=== PATIENT | male | born 1990 | race Caucasian/White ===

== ENCOUNTER 2017-09-28 14:41 | Inpatient (IN) | payer BC, OTHER ==
[~2017-09-28] VITALS: Ht 175.3 cm; Wt 70.3 kg
--- NOTE | 2017-09-28 00:23 | NUR ---
KEM BOWER ADMINISTRATION PATIENT C/O LEFT KNEE PAIN 03/06. WILL MONITOR FOR EFFECTIVENESS Addendum: 09/29/17 at 0433 by JOSH SALDIVAR LVN ERROR CHARTING
--- NOTE | 2017-09-28 14:55 | NUR ---
PRE-ASSESSMENT: Pre-Assessment done at intake office, client is A/O x4, he presents with flat affect, anxious mood. Goose bumps and dilated pupils noted. T 98.2, RR 18, BP 117/75, HR 101, spO2 @ 99% on RA, Pain generalized body aches 12/04. He is ambulatory, but noted to be limping, he stated, "I might have a torn meniscus, I had a fall on 09/25." He denies any allergies; he denies any withdrawal-induced seizure. He declines any PMH. He denies a PCP. No home medications.
[2017-09-28] MEDS ORDERED: METHOCARBAMOL 750 MG TABLET PO PRN (15:00)
[2017-09-28] MEDS ORDERED: IBUPROFEN 600 MG TABLET PO PRN (15:00)
[2017-09-28] MEDS ORDERED: MIRALAX 17 GM POWD.PACK PO PRN (15:00)
[2017-09-28] MEDS ORDERED: ONDANSETRON 4 MG/2 ML VIAL IM PRN (15:00)
[2017-09-28] MEDS ORDERED: BUPRENORPHINE HCL 2 MG TAB.SUBL SL PRN (15:00)
[2017-09-28] MEDS ORDERED: LORAZEPAM 2 MG/1 ML VIAL IM PRN (15:00)
[2017-09-28] MEDS ORDERED: MAGNESIUM HYDROXIDE 30 ML LIQUID UDC PO PRN (15:00)
[2017-09-28] MEDS ORDERED: ONDANSETRON ODT 4 MG TAB.RAPDIS SL PRN (15:00)
[2017-09-28] MEDS ORDERED: DICYCLOMINE HCL 20 MG TABLET PO PRN (15:00)
[2017-09-28] MEDS ORDERED: LORAZEPAM 1 MG TABLET PO PRN ×2 (15:00)
[2017-09-28] MEDS ORDERED: MAG HYDROX/AL HYDROX/SIMETH 30 ML LIQUID UDC PO PRN (15:00)
[2017-09-28] MEDS ORDERED: DOCUSATE SODIUM 250 MG CAPSULE PO PRN (15:00)
[2017-09-28] MEDS ORDERED: ACETAMINOPHEN 325 MG TABLET PO PRN (15:00)
[2017-09-28] MEDS ORDERED: diphenhydrAMINE 50 MG CAPSULE PO PRN (15:00)
[2017-09-28] MEDS ORDERED: LOPERAMIDE HCL 2 MG CAPSULE PO PRN ×2 (15:00)
[2017-09-28] MEDS ORDERED: CLONIDINE HCL 0.1 MG TABLET PO PRN (15:00)
--- NOTE | 2017-09-28 15:08 | NUR ---
Admissions Note 27 year old male admitted to [facility] for withdrawal from alcohol & heroin. Client is oriented to unit, educated about protocols and how to work TV and call light in his room. Weight: 155 pounds. Height: 5'9" CIWA Client appears anxious, goose bumps, dilated pupils, and clammy skin, skin intact with well healed small track ruano on bilateral forearms. Bilateral lung clear on auscultation, abdomen soft, non-tender, no edema noted. Clients voice is soft, he avoids eye contact. Substance history Alcohol (Vodka) 750mL PO daily for two weeks, last used 09/28/17 Heroin 0.5-1gm IV daily for the past two weeks, last used 09/28/17. Methamphetamine unknown amount smoked a few times a week. Marijuana 1 gm daily smoked, last used 09/28/17 a few joints. Client reports been at least on 10 prior treatment, last being at [facility] in Aug 2017 for two weeks. Longest period of sobriety 11 months on 2013. Client has NKA. Regular diet ordered. Full code status ordered. Client denies any history of seizures. LBM was 09/27/17, small/brown/soft. Client denies a PCP. He refuses PNA / FLU vaccine at this time, stating he is afraid he might get sick because of it. He gives verbal consent for HIV. Client states that he lives with his dad. Dr. Frye is with client. Urine was collected upon admission. Client refused side rails x 2 up/padded, explain the risk/benefits of not having side rails up and he stated, "Just give me a paper to sign that I don't want them and I'll sign it." Fall/seizure precautions. Call light within reach. Will continue to monitor.
[2017-09-28 16:00] VITALS: BP 117/75
[2017-09-28] MEDS ORDERED: THIAMINE HCL 200 MG/2 ML VIAL IM ONE (16:00)
[2017-09-28] MEDS: LORAZEPAM 1 MG TABLET PO SCH ×2 (16:21→20:51)
[2017-09-28] MEDS: BUPRENORPHINE HCL 2 MG TAB.SUBL SL SCH ×2 (16:21→21:33)
[2017-09-28 16:49] LABS: *AMPHETAMINE, URINE POSITIVE (NEGATIVE); *BARBITURATE, URINE POSITIVE (NEGATIVE); *CANNABINOID, URINE POSITIVE (NEGATIVE); *COCCAINE, URINE NEGATIVE (NEGATIVE); *OPIATE, URINE POSITIVE (NEGATIVE); *PHENCYCLIDINE SCREEN,URINE NEGATIVE (NEGATIVE)
--- NOTE | 2017-09-28 19:08 | NUR ---
END OF SHIFT Endorsed to incoming nurse, client is a 27 year old male admitted to [facility] for withdrawal from alcohol & heroin.Client is a/o x 4. Last CIWA . Client continues to present with anxious mood, flat affect, goose bumps, dilated pupils, and clammy skin. Client has NKA. Regular diet ordered. Full code status ordered. Client denies any history of seizures. LBM was 09/27/17, small/brown/soft. Bed in lowest/locked position, client refuses side rails x 2 up/padded for seizure precautions.
[2017-09-28 20:00] VITALS: BP 136/77
--- NOTE | 2017-09-28 20:00 | NUR ---
START OF SHIFT NOTE RECEIVED REPORT FROM DAY SHIFT NURSE. PATIENT IS A 27 YEAR OLD MALE NEWLY ADMITTED FOR ALCOHOL/OPIOID DEPENDENCE. PATIENT RELAPSED 2 WEEKS AGO. LAST COWS 11 AND CIWA 5. PATIENT WAS PLACED ON 5 DAY ATIVAN AND 5 DAY SUBUTEX TAPER, STARTED TODAY. PATIENT REPORTS DENIES ANY PAST MEDICAL HISTORY. NO SEIZURE HISTORY. PATIENT HAD FALL ON 09/25. X-RAY DONE , PENDING RESULT. THIAMINE INJECTION GIVEN. RECEIVED PATIENT ALERT AND ORIENTED X 4. RESPIRATION EVEN AND UNLABORED. PATIENT STATES HE FEELS MUCH BETTER THAN EARLIER BUT HE STILL ANXIOUS, ABDOMINAL CRAMPING, SWEATING , NO N/V, NO N/V. ON FALL PRECAUTION. ONE SIDE RAILS UP , REFUSED BOTH SIDE RAILS UP. EXPLAINED RISKS/BENEFITS. WILL CONTINUE TO MONITOR.
[2017-09-29] VITALS: BP 140/82
--- NOTE | 2017-09-29 00:23 | NUR ---
PRN ROBAXIN ADMINISTRATION PATIENT C/O LEFT KNEE PAIN 03/06. WILL MONITOR FOR EFFECTIVENESS
--- NOTE | 2017-09-29 01:23 | NUR ---
KEM BOWER RE-ASSESSMENT PATIENT STATES ROBAXIN IS HELPFUL FOR HIS LEFT KNEE PAIN . PAIN LEVEL 2/10 AT THIS TIME. WILL CONTINUE TO MONITOR.
[2017-09-29 04:00] VITALS: BP 106/56
--- NOTE | 2017-09-29 07:15 | NUR ---
END OF SHIFT NOTE PATIENT SLEPT 1 HOUR. FLUID INTAKE 1,349 ML. VOIDED X 2 .NO BM. PATIENT IS A 27 YEAR OLD MALE NEWLY ADMITTED FOR ALCOHOL/OPIOID DEPENDENCE. PATIENT RELAPSED 2 WEEKS AGO. PATIENT IS ON 5 DAY ATIVAN AND 5 DAY SUBUTEX TAPER, TOLERATED WELL AND NO ADVERSE REACTION. PATIENT HAD FALL ON 09/25. X-RAY DONE, RESULT WAS NEGATIVE OF FRACTURE. PATIENT WAS GIVEN PRN ROBAXIN. ON FALL PRECAUTION. ONE SIDE RAILS UP , REFUSED BOTH SIDE RAILS UP. EXPLAINED RISKS/BENEFITS. WILL CONTINUE TO MONITOR. LAST COWS 2 AND CIWA 1.
--- NOTE | 2017-09-29 07:54 | NUR ---
BEGINNING OF SHIFT Patient endorsement report received from operation shift supervisor nurse, all pertinent information discussed. patient is a 27 year old male with admitting Dx: opiate/etoh dependence, and substance use of methamphetamine. Patient with ongoing 5 day Ativan and 5 day Subutex taper as ordered, patient is scheduled to begin day 2 of taper, will monitor closely. Per operation shift supervisor patient received PRN:Robaxin, medication was effective. patient slept for 1 hour. Patient with last cow score of: 2 and last ciwa score of: 1. Call light kept with in reach. Patient received in bed awake, alert and oriented x4, educated regarding plan of care for the day and medication regimen with good verbal understanding, will continue to monitor.
[2017-09-29 08:20] VITALS: BP 95/67
[2017-09-29] MEDS: THIAMINE HCL 100 MG TABLET PO SCH (08:23)
[2017-09-29] MEDS: MULTIVITAMINS,THERAPEUTIC TABLET PO SCH (08:23)
[2017-09-29] MEDS: FOLIC ACID 1 MG TABLET PO SCH (08:23)
[2017-09-29] MEDS: LORAZEPAM 1 MG TABLET PO SCH ×3 (08:24→21:38)
[2017-09-29] MEDS: BUPRENORPHINE HCL 2 MG TAB.SUBL SL SCH ×3 (08:24→21:37)
[2017-09-29] MEDS ORDERED: TUBERCULIN,PURIF.PROT.DERIV. 5 TU/0.1 ML TEST ID ONE (09:00)
--- NOTE | 2017-09-29 09:55 | NUR ---
REFUSED PPD Patient refused PPD, explained risk vs benefits, still refused, MD aware, patient with no cough/congestion noted, afebrile. will continue to monitor.
[2017-09-29] MEDS ORDERED: KETOROLAC TROMETHAMINE 30 MG INJ IM PRN (11:15)
[2017-09-29 12:18] LABS: BASOPHILS # (AUTO) 0.1 K/uL (0.0-8.0); BASOPHILS % (AUTO) 0.8 % (0.0-2.0); EOSINOPHILS # (AUTO) 0.7 K/uL (0.0-0.7); HEMOGLOBIN 14.1 g/dL (12.5-16.3); LYMPHOCYTES # (AUTO) 2.4 K/uL (20.0-40.0); LYMPHOCYTES % (AUTO) 32.4 % (20.5-51.5); MEAN CORPUSCULAR HEMOGLOBIN 30.1 uug (23.8-33.4); MEAN CORPUSCULAR HGB CONC 34 g/dL (32.5-36.3); MEAN CORPUSCULAR VOLUME 87.7 fL (73.0-96.2); MONOCYTES # (AUTO) 0.7 K/uL (2.0-10.0); NEUTROPHILS # (AUTO) 3.5 K/uL (1.8-8.9); NEUTROPHILS % (AUTO) 47.8 % (38.5-71.5); PLATELET COUNT (AUTO) 275 K/uL (152-348); RED BLOOD CELL COUNT(AUTO) 4.68 MIL/uL (4.06-5.63); WHITE BLOOD COUNT (AUTO) 7.4 K/uL (3.6-10.2)
[2017-09-29 12:56] LABS: ALANINE AMINOTRANSFERASE 67 U/L (16-63); ALKALINE PHOSPHATASE 97 U/L (50-136); ASPARTATE AMINOTRANSFERASE 35 U/L (15-37); BILIRUBIN,TOTAL 0.2 mg/dL (0.2-1.0); CARBON DIOXIDE 27 mmol/L (21-32); CHLORIDE 106 mmol/L (98-107); ETHANOL < 3 MG/DL (0-0); GLUCOSE 105 mg/dL (74-106); POTASSIUM 4.1 mmol/L (3.5-5.1); UREA NITROGEN, BLOOD 11 mg/dL (7-18)
[2017-09-29 12:57] LABS: MAGNESIUM 1.9 mg/dL (1.8-2.4); TOTAL PROTEIN, SERUM 7.3 g/dL (6.4-8.2)
[2017-09-29 13:20] VITALS: BP 113/63
[2017-09-29 16:46] VITALS: BP 121/78
--- NOTE | 2017-09-29 19:11 | NUR ---
END OF SHIFT Patient alert and oriented x4, during shift. compliant with therapeutic plan of care. Patient continues on 5 day ativan and 5 day subutex taper as ordered, well tolerated, patient currently with ongoing day 2 of tapers, well tolerated, no ASE noted. Patient with admitting dx: etoh/opiate dependence. Detox medication effective at reducing withdrawal symptoms. 0900 COW: 13/CIWA: 8. 1300 COW: 14 CIWA: 8; 1700 COW: 6CIWA:4.Patient encouraged adequate PO fluid intake as tolerated. Encouraged to attend group therapies/sessions to learn new coping skills to prevent relapse. Patient Denies any SI/HI. Safety measures in place. call light kept with in reach. patient endorsed to benefits sales consultant nurse, all pertinent information discussed.
--- NOTE | 2017-09-29 19:15 | NUR ---
START OF SHIFT NOTE : PATIENT IS A 27 YEAR OLD MALE , ADMITTED TO [facility] FOR ALCOHOL/OPIOID DEPENDENCE ON 09/28/2017. PATIENT WAS PLACED ON 5 DAY ATIVAN AND 5 DAY SUBUTEX TAPER, STARTED ON 09/28/2017. NKA, Full Code, on Reg.Diet. PT. IS ALERT, ORIENTEDX3, COMPLAINS OF ANXIETY, LAST CIWA=4, COWS=6 AT 16:00. ON FALL PRECAUTION. Pt. complains of increased level of anxiety, mild discomfort in his left knee. Safety measures in place : bed on lowest position with side rails x2 up for safety, call light within reach. Will continue to monitor closely and offer help.
[2017-09-29 20:00] VITALS: BP 116/78
[2017-09-29] MEDS: BACLOFEN 10 MG TABLET PO SCH (21:37)
[2017-09-29] MEDS: CLONIDINE HCL 0.1 MG TABLET PO SCH (21:38)
--- NOTE | 2017-09-30 06:39 | NUR ---
END OF SHIFT NOTE : PATIENT IS A 27 YEAR OLD MALE , ADMITTED TO [facility] FOR ALCOHOL/OPIOID DEPENDENCE ON 09/28/2017. PATIENT WAS PLACED ON 5 DAY ATIVAN AND 5 DAY SUBUTEX TAPER, STARTED ON 09/28/2017. NKA, Full Code, on Reg.Diet. Pt remains compliant with the treatment plan. No PRNs were given during my shift. V/S remain WNL. RR=16, even and unlabored, lungs clear upon auscultation, abdomen soft and non- distended. Pt denies nausea, vomiting and diarrhea. CIWA and COWS taken when pt. was alert during the night, LAST CIWA=3 ,COWS=3 at 0400 , INTAKE= 1200 ml, voided x3 , slept 8 hours. Safety measures in place : bed on lowest position with side rails x2 up for safety, call light within reach. Will continue to monitor closely and offer help.
--- NOTE | 2017-09-30 07:30 | NUR ---
START OF SHIFT Pt 27 y/o male admitted for alcohol and opioid dependence. Pt received in room on bed with eyes closed resting, but easily arousable to name. Pt alert and oriented to name, place, and time. Perrla. Skin warm and slightly moist to touch. Respirations even and unlabored. Bilateral hand tremors noted. It was reported that pt slept for 8 hours last night. Bed on lowest position with side rails x2 up for safety. Call light within reach. No distress noted at this time.
[2017-09-30 08:00] VITALS: BP 109/63
[2017-09-30] MEDS: MULTIVITAMINS,THERAPEUTIC TABLET PO SCH (08:36)
[2017-09-30] MEDS: BACLOFEN 10 MG TABLET PO SCH ×3 (08:36→21:12)
[2017-09-30] MEDS: FOLIC ACID 1 MG TABLET PO SCH (08:36)
[2017-09-30] MEDS: LORAZEPAM 1 MG TABLET PO SCH ×3 (08:36→21:12)
[2017-09-30] MEDS: CLONIDINE HCL 0.1 MG TABLET PO SCH ×2 (08:36→21:12)
[2017-09-30] MEDS: THIAMINE HCL 100 MG TABLET PO SCH (08:36)
[2017-09-30] MEDS ORDERED: BUPRENORPHINE HCL 2 MG TAB.SUBL SL SCH (09:00)
--- NOTE | 2017-09-30 10:05 | NUR ---
Therapist prompted client to attend daily group sessions. Client related that he would if he was feeling up to it.
[2017-09-30 12:00] VITALS: BP 115/70
[2017-09-30 13:07] LABS: HEPATITIS B SURFACE AG Negative (Negative)
[2017-09-30] MEDS: BUPRENORPHINE HCL 2 MG TAB.SUBL SL SCH ×3 (14:06→21:12)
[2017-09-30 16:00] VITALS: BP 142/77
--- NOTE | 2017-09-30 17:01 | NUR ---
PRN Pt with wo=720/77. Catapres po prn per MD order given and tolerated well.
--- NOTE | 2017-09-30 18:01 | NUR ---
PRN EVAL Pt lg=747/80
--- NOTE | 2017-09-30 18:54 | NUR ---
END OF SHIFT Pt 27 y/o male admiitted for alcohol adn opioid withdrawal. Pt alert and oriented to name, place, and time. Perrla. Skin warm and slightly moist to touch. Respirations even and unlabored. Bilateral hand tremors noted slightly. Pt with periods of anxiety this morning and slightly irritable. Pt observed mostly isolative to room throughout the day. Pt did not attend group activity today. Pt was seen MD today. Pt medication compliant and tolerated well. No ASE noted. Bed on lowest position with side rails x2 up for safety. Call light within reach. No distress noted at this time
--- NOTE | 2017-09-30 19:30 | NUR ---
START OF SHIFT Pt is a 27 y/o male admitted on 09/28/16 for ETOH, opiate and meth dependence. Pt was dependent on vodka, heroin and meth. Pt is full code, NKA, regular diet and on fall/seizure precautions. Pt denies PMH or hx of seizures. Pt is on a 5 day Ativan and 5 day Subutex taper that started on 09/28/16, tolerating well. Upon assessment pt laying in bed with eyes closed. Upon fully awakening pt presents with anxiety, agitation, fatigue, sweats, dysphoria and anhedonia. Denies any pain at this time. Respirations even and unlabored. Denies N/V/D. Denies A/V hallucinations. Denies chest pain or SOB. Medications due. Safety measures in place. Call light within reach. Will continue to monitor. Addendum: 10/01/17 at 1923 by VIKTORIA ALEJANDRO RN ADMITTED 09/28/17, TAPER STARTED ON 09/28/17*
[2017-09-30 20:00] VITALS: BP 120/72
--- NOTE | 2017-09-30 21:00 | NUR ---
SCHEDULED SUBUTEX 2 MG NON-ADMINISTRATION Pt refused scheduled Subutex 2 mg at 2100, explain risks/benefits. Pt verbalized understanding.
[2017-10-01] VITALS (7 sets, daily range): BP systolic 86–125; BP diastolic 42–71
--- NOTE | 2017-10-01 | NUR ---
COWS/CIWA DEFERRED Pt is laying in bed with eyes closed, COWS/CIWA deferred, to be assessed when pt is awake per orders. Respirations 16, even and unlabored. Safety measures in place. Call light within reach. Will continue to monitor.
--- NOTE | 2017-10-01 07:06 | NUR ---
END OF SHIFT Pt is a 27 y/o male admitted on 09/28/16 for ETOH, opiate and meth dependence. Pt was dependent on vodka, heroin and meth. Pt is full code, NKA, regular diet and on fall/seizure precautions. Pt denies PMH or hx of seizures. Pt is on a 5 day Ativan and 5 day Subutex taper that started on 09/28/16, tolerating well. Pt presented with anxiety, agitation, fatigue, sweats, dysphoria and anhedonia. Scheduled medications administered except Subutex 2 mg per pt request. Risks/benefits explained. No PRNS administered. Last COWS 2 and CIWA 4 at 1999. Pt slept 9 hours. Intake 500 ml, void x 1, stool x 0. Safety measures in place. Call light within reach. Pts needs have been met. Endorsed to day shift nurse.
--- NOTE | 2017-10-01 07:30 | NUR ---
START OF SHIFT Pt 27 y/o male admitted for alcohol and opioid dependence. Pt received in room on bed awake watching television. Pt alert and oriented to name, place, and time. Perrla. Skin warm and slightly moist to touch. Respirations even and unlabored. Bilateral hand tremors noted slightly. It was reported that pt slept for 9 hours last night. Bed on lowest position with side rails x2 up for safety. Call light within reach. No distress noted at this time.
[2017-10-01] MEDS: FOLIC ACID 1 MG TABLET PO SCH (08:20)
[2017-10-01] MEDS: CLONIDINE HCL 0.1 MG TABLET PO SCH ×2 (08:20→21:00)
[2017-10-01] MEDS: BACLOFEN 10 MG TABLET PO SCH ×3 (08:20→21:54)
[2017-10-01] MEDS: LORAZEPAM 1 MG TABLET PO SCH ×2 (08:20→21:54)
[2017-10-01] MEDS: THIAMINE HCL 100 MG TABLET PO SCH (08:20)
[2017-10-01] MEDS: MULTIVITAMINS,THERAPEUTIC TABLET PO SCH (08:20)
[2017-10-01] MEDS: BUPRENORPHINE HCL 2 MG TAB.SUBL SL SCH ×3 (08:21→21:00)
--- NOTE | 2017-10-01 18:49 | NUR ---
END OF SHIFT Pt 27 y/o male admiitted for alcohol adn opioid withdrawal. Pt alert and oriented to name, place, and time. Perrla. Skin warm and slightly moist to touch. Respirations even and unlabored. Bilateral hand tremors noted slightly. Pt observed mostly isolative to room throughout the day. Pt did not attend group activity today. Pt was seen MD today. Pt medication compliant and tolerated well. No ASE noted. Bed on lowest position with side rails x2 up for safety. Call light within reach. No distress noted at this time.
--- NOTE | 2017-10-01 19:30 | NUR ---
START OF SHIFT Pt is a 27 y/o male admitted on 09/28/17 for ETOH, opiate and meth dependence. Pt was dependent on vodka, heroin and meth. Pt is full code, NKA, regular diet and on fall/seizure precautions. Pt denies PMH or hx of seizures. Pt is on a 5 day Ativan and 5 day Subutex taper that started on 09/28/17, tolerating well. Upon assessment pt laying in bed with eyes closed. Upon fully awakening pt presents with anxiety, fatigue, sweats, dysphoria and anhedonia. Denies any pain at this time. Respirations even and unlabored. Denies N/V/D. Denies A/V hallucinations. Denies chest pain or SOB. Medications due. Safety measures in place. Call light within reach. Will continue to monitor.
--- NOTE | 2017-10-01 21:00 | NUR ---
SCHEDULED CLONIDINE AND SUBUTEX HELD BP 96/50 HR 67. COWS 2. Orders to hold Clonidine for BP < 100/70 and to hold Subutex for BP < 90/60. Safety measures in place. Call light within reach. Will continue to monitor.
--- NOTE | 2017-10-02 04:00 | NUR ---
COWS/CIWA DEFERRED AND VITALS REFUSED Pt is laying in bed with eyes closed, COWS/CIWA deferred, to be assessed when pt is awake per orders. Vitals refused. Respirations 16, even and unlabored. Safety measures in place. Call light within reach. Will continue to monitor.
--- NOTE | 2017-10-02 07:10 | NUR ---
END OF SHIFT Pt is a 27 y/o male admitted on 09/28/17 for ETOH, opiate and meth dependence. Pt was dependent on vodka, heroin and meth. Pt is full code, NKA, regular diet and on fall/seizure precautions. Pt denies PMH or hx of seizures. Pt is on a 5 day Ativan and 5 day Subutex taper that started on 09/28/17, tolerating well. Pt presented with anxiety, fatigue, sweats, dysphoria and anhedonia. Scheduled medications administered, effective in S/S of withdrawal as verbalized by pt. Scheduled Clonidine and Subutex held d/t BP 96/50 and HR 67. Last COWS 2 and CIWA 3 at 2000. Pt slept 3 hours. Intake 1500 ml, void x 3, stool x 0. Safety measures in place. Call light within reach. Pts needs have been met. Endorsed to day shift nurse.
--- NOTE | 2017-10-02 07:30 | NUR ---
START OF SHIFT Pt 27 y/o male admitted for alcohol and opioid withdrawal. Pt received in room on bed with eyes closed resting, but easily arousable to name. Pt alert and oriented to name, place, and time. Perrla. Skin warm and slightly moist to touch. Respirations even and unlabored. Bilateral hand tremors noted slightly. It was reported that pt slept for 3 hours last night. Last reported cows=2 ciwa=3 @ 0400. Bed on lowest position with side rails x2 up for safety. Call light within reach. No distress noted at this time.
[2017-10-02 08:00] VITALS: BP 108/63
[2017-10-02] MEDS ORDERED: LORAZEPAM 1 MG TABLET PO SCH (09:00)
[2017-10-02] MEDS ORDERED: BUPRENORPHINE HCL 2 MG TAB.SUBL SL SCH (09:00)
[2017-10-02] MEDS: FOLIC ACID 1 MG TABLET PO SCH (09:24)
[2017-10-02] MEDS: MULTIVITAMINS,THERAPEUTIC TABLET PO SCH (09:24)
[2017-10-02] MEDS: BACLOFEN 10 MG TABLET PO SCH ×3 (09:24→21:47)
[2017-10-02] MEDS: THIAMINE HCL 100 MG TABLET PO SCH (09:24)
[2017-10-02] MEDS: CLONIDINE HCL 0.1 MG TABLET PO SCH ×2 (09:25→21:47)
[2017-10-02 12:00] VITALS: BP 113/58
[2017-10-02 16:00] VITALS: BP 115/64
--- NOTE | 2017-10-02 18:28 | NUR ---
END OF SHIFT Pt 27 y/o male admitted for alcohol and opioid withdrawal. Pt alert and oriented to name, place, and time. Perrla. Skin warm and slightly moist to touch. Respirations even and unlabored. Bilateral hand tremors noted slightly. Pt observed mostly isolative to room throughout the day. Pt did not attend group activity today. Pt was seen MD today. Pt medication compliant and tolerated well. No ASE noted. Bed on lowest position with side rails x2 up for safety. Call light within reach. No distress noted at this time. Pt is scheduled to be discharged tomorrow.
[2017-10-02] MEDS ORDERED: IBUP-1955 PO (18:37)
[2017-10-02] MEDS ORDERED: DIPH50CA37 PO (18:37)
[2017-10-02] MEDS ORDERED: DICY20TA28 PO (18:37)
[2017-10-02] MEDS ORDERED: HYDR-3895 PO (18:37)
[2017-10-02] MEDS ORDERED: METH-406 PO (18:37)
[2017-10-02] MEDS ORDERED: CLON0.1T14 PO (18:37)
--- NOTE | 2017-10-02 19:05 | NUR ---
START OF SHIFT Patient is a 27-year-old male admitted on 09/28/17 for ETOH (vodka), heroin, cannabis and methamphetamine dependence. Patient has past medical history of alcohol use disorder, opioid use disorder, and tobacco use disorder. Patient denies surgical history. Patient is FULL code, on regular diet, with NKA to food or drugs. Patient is on seizure and fall precautions, with no history of withdrawal-induced seizures. Patient has completed 5-day Ativan and 5-day Subutex taper, tolerated well; scheduled for discharge tomorrow. Upon assessment, patient is alert and oriented x4, skin intact with few dry scabs on his right shoulder. Patient's respirations are even and unlabored, denies pain at this time. Safety measures in place, bed locked in low position, side rails up x2, call light within reach. Will continue to monitor.
[2017-10-02 20:00] VITALS: BP 132/73
[2017-10-03] VITALS: BP 123/62
--- NOTE | 2017-10-03 | NUR ---
MIDNIGHT COWS AND CIWA DEFERRED COWS and CIWA deferred due to patient sleeping; to be assessed and scored while patient is awake. Patient's respirations are even and unlabored, 16/min. Safety measures in place, bed locked in low position, side rails up x2, call light within reach. Will continue to monitor.
--- NOTE | 2017-10-03 04:00 | NUR ---
VITAL SIGNS REFUSED, COWS AND CIWA DEFERRED Patient refused 0400 vitals. COWS and CIWA deferred due to patient sleeping; to be assessed and scored while patient is awake. Patient's respirations are even and unlabored, 16/min. Safety measures in place, bed locked in low position, side rails up x2, call light within reach. Will continue to monitor.
--- NOTE | 2017-10-03 07:04 | NUR ---
END OF SHIFT Patient is a 27-year-old male admitted on 09/28/17 for ETOH (vodka), heroin, cannabis and methamphetamine dependence. Patient has past medical history of alcohol use disorder, opioid use disorder, and tobacco use disorder. Patient denies surgical history. Patient is FULL code, on regular diet, with NKA to food or drugs. Patient is on seizure and fall precautions, with no history of withdrawal-induced seizures. Patient has completed 5-day Ativan and 5-day Subutex taper, tolerated well; scheduled for discharge today. Patient slept for 3 hours, total intake 1,196 mL, void x4, stool x0. No PRNs were given during shift. Safety measures in place, bed locked in low position, side rails up x2, call light within reach. Will endorse to day shift.
--- NOTE | 2017-10-03 07:35 | NUR ---
START OF SHIFT NOTE: Received report from night custodian nurse. Patient is a 27-year-old male admitted on 09/28/17 for ETOH (vodka), heroin, cannabis and methamphetamine dependence. Completed a 5 day Ativan and Subutex tapers. To be discharged this AM. Pt is alert and oriented X4. Color good, skin warm and dry. Respirations even and unlabored. Safety precautions observed. Call light within reach.
[2017-10-03 08:11] VITALS: BP 110/60
[2017-10-03] MEDS: FOLIC ACID 1 MG TABLET PO SCH (08:11)
[2017-10-03] MEDS: MULTIVITAMINS,THERAPEUTIC TABLET PO SCH (08:11)
[2017-10-03] MEDS: THIAMINE HCL 100 MG TABLET PO SCH (08:11)
[2017-10-03] MEDS: CLONIDINE HCL 0.1 MG TABLET PO SCH (08:11)
[2017-10-03] MEDS: BACLOFEN 10 MG TABLET PO SCH (08:12)
--- NOTE | 2017-10-03 08:15 | NUR ---
VSS Discharge papers signed. No home medications
--- NOTE | 2017-10-03 09:30 | NUR ---
discharge note: pt left the unit in stable condition, no s/s of pain or discomfort. pt teaching administered and pt verbalized understanding, pt's V/S WNL. pt will be transferred to treatment via private transportation.
== END 2017-10-03 09:33 | disposition other institution (70) | DRG 895 ==
LOC: SRC 14:41
PROVIDERS: ADMIT Internal Medicine; ATTEND Internal Medicine
PROC: HZ2ZZZZ Detoxification Services for Substance Abuse Treatment (ICD-10-PCS; principal; 2017-09-28)
PROC: HZ31ZZZ Individual Counseling for Substance Abuse Treatment, Behavioral (ICD-10-PCS; 2017-10-02)
DX: F10.230 Alcohol dependence with withdrawal, uncomplicated (principal); I15.9 Secondary hypertension, unspecified; B19.20 Unspecified viral hepatitis C without hepatic coma; F11.23 Opioid dependence with withdrawal; Y90.9 Presence of alcohol in blood, level not specified; M25.362 Other instability, left knee; Z91.81 History of falling; Z59.0 Homelessness; Z81.1 Family history of alcohol abuse and dependence; Z91.89 Other specified personal risk factors, not elsewhere classified; F17.210 Nicotine dependence, cigarettes, uncomplicated; F15.10 Other stimulant abuse, uncomplicated; F12.10 Cannabis abuse, uncomplicated; R26.81 Unsteadiness on feet; M25.562 Pain in left knee
CPT/HCPCS: 36415; 80307; 80324; 80345; 80349; 80361; 83735; 85025; 86580; 86592; 86705; 86803; 87340; 87806; A4663; G0480; J3411

== ENCOUNTER 2017-10-22 12:10 | Inpatient (IN) | payer BC, OTHER ==
[~2017-10-22] VITALS: Ht 175.3 cm; Wt 70.3 kg
[~2017-10-22 12:10] MED LIST: CLON0.1T14 PO; DICY20TA28 PO; DIPH50CA37 PO; HYDR-3895 PO; IBUP-1955 PO; METH-406 PO
--- NOTE | 2017-10-22 12:21 | NUR ---
PRE-ASSESSMENT: Client is in intake office, he is a/o x4, he presents with anxious mood, flat affect, enlarged pupils, inability to stay still, difficult to concentrate, he is disheveled, fingernails are long and with dirty, client stated, "I have been homeless since discharge from [facility]." . T 98.4, RR 18, BP 125/83, HR 113, spO2 @ 99% on RA, Pain 0/10. He is fully ambulatory. He denies any allergies; he denies any withdrawal-induced seizure. He declines any PMH. He denies a PCP. No home medications. Q4H vital signs, UDS, blood drawn and controlled medication policy reviewed, he verbalized understanding.
--- NOTE | 2017-10-22 12:42 | NUR ---
Admissions Note 27 year old male admitted to [facility] for withdrawal from alcohol & heroin. Client is oriented to unit, educated about protocols and how to work TV and call light in his room. Weight: 155 pounds. Height: 5'9" CIWA Client appears anxious, goose bumps, dilated pupils, and clammy skin, skin intact with well healed small track ruano on bilateral forearms. redness/swelling noted on L ankle, skin intact. Bilateral lung clear on auscultation, abdomen soft, non-tender. Clients voice is soft. Client avoids eye contact. Substance history Alcohol (Whiskey) 750mL PO dailly since 10/04/18, last used 10/21/17 Heroin 0.5-1gm IV daily since 10/04/17, last used 10/21/17. Methamphetamine unknown amount smoked when available, last used 10/21/17 Client reports been at least on 10 prior treatment, last being at [facility] 09/28/17-10/03/17 and he relapsed a day after discharge. Longest period of sobriety 11 months on 2013. Client has NKA. Regular diet ordered. Full code status ordered. Client denies any history of seizures. LBM was 10/21/17, small/hard. Client denies a PCP. He refuses PNA / FLU vaccine at this time, stating he does not believe it will work. He gives verbal consent for HIV. Client states that he is homeless. Dr. Frye assessed client. Urine was collected upon admission. Fall/seizure precautions. Call light within reach. Will continue to monitor.
[2017-10-22] MEDS ORDERED: METHOCARBAMOL 750 MG TABLET PO PRN (13:00)
[2017-10-22] MEDS ORDERED: DOCUSATE SODIUM 250 MG CAPSULE PO PRN (13:00)
[2017-10-22] MEDS ORDERED: ONDANSETRON 4 MG/2 ML VIAL IM PRN (13:00)
[2017-10-22] MEDS ORDERED: IBUPROFEN 600 MG TABLET PO PRN (13:00)
[2017-10-22] MEDS ORDERED: LOPERAMIDE HCL 2 MG CAPSULE PO PRN ×2 (13:00)
[2017-10-22] MEDS ORDERED: THIAMINE HCL 200 MG/2 ML VIAL IM ONE (13:00)
[2017-10-22] MEDS ORDERED: ONDANSETRON ODT 4 MG TAB.RAPDIS SL PRN (13:00)
[2017-10-22] MEDS ORDERED: MIRALAX 17 GM POWD.PACK PO PRN (13:00)
[2017-10-22] MEDS ORDERED: BUPRENORPHINE HCL 2 MG TAB.SUBL SL PRN (13:00)
[2017-10-22] MEDS ORDERED: MAGNESIUM HYDROXIDE 30 ML LIQUID UDC PO PRN (13:00)
[2017-10-22] MEDS ORDERED: LORAZEPAM 1 MG TABLET PO PRN (13:00)
[2017-10-22] MEDS ORDERED: MAG HYDROX/AL HYDROX/SIMETH 30 ML LIQUID UDC PO PRN (13:00)
[2017-10-22] MEDS ORDERED: diphenhydrAMINE 50 MG CAPSULE PO PRN (13:00)
[2017-10-22] MEDS ORDERED: CLONIDINE HCL 0.1 MG TABLET PO PRN (13:00)
[2017-10-22] MEDS ORDERED: LORAZEPAM 2 MG/1 ML VIAL IM PRN (13:00)
[2017-10-22] MEDS ORDERED: ACETAMINOPHEN 325 MG TABLET PO PRN (13:00)
[2017-10-22] MEDS ORDERED: DICYCLOMINE HCL 20 MG TABLET PO PRN (13:00)
[2017-10-22] MEDS: LORAZEPAM 1 MG TABLET PO SCH ×3 (13:31→20:19)
[2017-10-22] MEDS: BUPRENORPHINE HCL 2 MG TAB.SUBL SL SCH ×3 (13:31→20:19)
[2017-10-22 13:37] LABS: *AMPHETAMINE, URINE POSITIVE (NEGATIVE); *BARBITURATE, URINE NEGATIVE (NEGATIVE); *CANNABINOID, URINE NEGATIVE (NEGATIVE); *COCCAINE, URINE NEGATIVE (NEGATIVE); *OPIATE, URINE POSITIVE (NEGATIVE); *PHENCYCLIDINE SCREEN,URINE NEGATIVE (NEGATIVE)
[2017-10-22 16:00] LABS: BASOPHILS # (AUTO) 0.1 K/uL (0.0-8.0); EOSINOPHILS # (AUTO) 0.2 K/uL (0.0-0.7); EOSINOPHILS % (AUTO) 2.8 % (0.0-7.0); HEMOGLOBIN 14.6 g/dL (12.5-16.3); LYMPHOCYTES # (AUTO) 1.9 K/uL (20.0-40.0); LYMPHOCYTES % (AUTO) 21.6 % (20.5-51.5); MEAN CORPUSCULAR HGB CONC 35 g/dL (32.5-36.3); MEAN CORPUSCULAR VOLUME 86.5 fL (73.0-96.2); MONOCYTES # (AUTO) 0.5 K/uL (2.0-10.0); MONOCYTES % (AUTO) 5.7 % (0.0-11.0); NEUTROPHILS % (AUTO) 68.9 % (38.5-71.5); PLATELET COUNT (AUTO) 334 K/uL (152-348); RED BLOOD CELL COUNT(AUTO) 4.86 MIL/uL (4.06-5.63); WHITE BLOOD COUNT (AUTO) 8.7 K/uL (3.6-10.2)
[2017-10-22 16:12] LABS: ETHANOL < 3 MG/DL (0-0)
[2017-10-22 16:13] LABS: ALANINE AMINOTRANSFERASE 64 U/L (16-63); ALKALINE PHOSPHATASE 87 U/L (50-136); ASPARTATE AMINOTRANSFERASE 33 U/L (15-37); BILIRUBIN,TOTAL 0.3 mg/dL (0.2-1.0); CARBON DIOXIDE 26 mmol/L (21-32); CHLORIDE 105 mmol/L (98-107); GLUCOSE 126 mg/dL (74-106); TOTAL PROTEIN, SERUM 8.1 g/dL (6.4-8.2); UREA NITROGEN, BLOOD 15 mg/dL (7-18)
--- NOTE | 2017-10-22 16:29 | NUR ---
PRN Bentyl 20mg PO, Robaxin 750mg PO, irritability, chills/colds and anxiety MB P 140. Breathing relaxation techniques demonstrated, reinforcement needed. Call light within reach. Addendum: 10/22/17 at 1638 by CRISTAL MORROW RN bentyl administered for abdominal spasms, robaxin for myalgia 02/03
[2017-10-22 16:36] VITALS: BP 121/74
--- NOTE | 2017-10-22 17:29 | NUR ---
Reassess PRN Bentyl 20mg, Robaxin 750mg, Clonidine 0.1mg client presents with anxious mood, P 148, myalgia on lower back resolved, abdominal spasm not resolved. Will notify
--- NOTE | 2017-10-22 17:40 | NUR ---
MD Notification Dr. Frye made aware of increased P 145-150's to assess CIWA and medicate accordingly, if after 2100 Ativan dose pulse still high to notify MD for a ECG order. CN made aware.
[2017-10-22] MEDS: LORAZEPAM 1 MG TABLET PO PRN ×2 (17:57→23:33)
--- NOTE | 2017-10-22 17:57 | NUR ---
PRN Ativan 2mg PO administered for anxiety MB P 148, irritability, skin moist, cold/chills, difficulty staying still, poor concentration, CIWA 13. Call light within reach.
--- NOTE | 2017-10-22 18:57 | NUR ---
Reassess PRN Ativan 2mg client continues to present with increase P 144, he denies chest pain, headache or dizziness, CIWA 13. Call light within reach.
--- NOTE | 2017-10-22 19:20 | NUR ---
END OF SHIFT Client is in room, he presents with anxious mood, flat affect, he denies any chest pain, REYES, or dizziness. PRN medications given and noted per protocol. Call light within reach.
--- NOTE | 2017-10-22 19:30 | NUR ---
Start of Shift Note: Patient is a 27 y.o male admitted today 10/22/17 for Opiate and ETOH dependence. Patient reported drinking 750ml of whiskey daily and Heroin IV 0.5-1.0 gram daily for 19 days. Patient also reports smoking Meth on an intermittent non-daily basis. Patient has PMHx of Hepatitis C. Patient started on a 5-day Subutex and 5-day Ativan taper and tolerating well. Last COWS CI 13. Patient received PRN Robaxin, Bentyl, Clonidine, Subutex 4mg and Ativan 2mg during my shift. Patient is alert & oriented to name, place & situation. Patient is ambulatory with a steady gait. No shortness of breath noted. Respiration even & unlabored. Abdomen soft & non-distended. No nausea/vomiting noted. Patient presented with sweating, chills, restlessness, runny nose, diarrhea, double vision, moderate anxiety and agitation. Patient noted with bilateral hand tremors. Noted with very light visual sensitivity. Pt denies auditory and tactile hallucinations. Safety precautions are in place. Bed locked in lowest position. Both side rails up. Call light within pts reach. Will continue to monitor patient.
[2017-10-22 20:00] VITALS: BP 135/83
[2017-10-22] MEDS: GABAPENTIN 300 MG CAPSULE PO SCH (20:19)
[2017-10-22] MEDS: SULFAMETH/TRIMETH 800/160 MG TABLET PO SCH (20:19)
[2017-10-22] MEDS: LACTOBACILLUS RHAMNOSUS GG 1 EACH CAPSULE PO SCH (20:19)
[2017-10-22 23:30] VITALS: BP 139/81
--- NOTE | 2017-10-22 23:33 | NUR ---
PRN Ativan Patient presented with moderate severe anxiety & agitation, sweating, double vision & fine tremors. No pain/discomfort noted. CIWA 17 noted. Vitals B/P 139/81, [place] 129. RR 17, O2 Sat 99%. PRN Ativan 2mg administered as ordered. Will monitor for effectiveness of medication.
--- NOTE | 2017-10-23 01:00 | NUR ---
PRN Reassessment Patient noted with a decreased in anxiety & agitation. Pt denies hallucinations. Hand tremors still noted. No nausea noted. CIWA 10 noted. Safety measures in place. Will continue to monitor patient.
[2017-10-23 03:00] VITALS: BP 139/79
--- NOTE | 2017-10-23 07:11 | NUR ---
End of Shift Note: Patient is a 27 y.o male admitted today 10/22/17 for Opiate and ETOH dependence. Patient had an uneventful night. Pt is on a Subutex and Ativan taper and tolerating well. No adverse reaction noted. Last COWS 13 CIWA 10. Pt received PRN Ativan 2mg for s/s of withdrawal and was effective. Vitals monitored closely. EKG done as ordered d/t tachycardia. MD is aware and noted with a latest OR of 109. Patient is asymptomatic with No s/s of distress noted. Continued to monitor signs and symptoms of withdrawal. Patient slept most of the night for a total of 4 hours. Fluid intake: 1065 ml. Voided 2x with no bowel movement. Encourage pt to increase fluid intake. All needs attended & met. Safety measures in place. Will endorse pt to day shift nurse.
--- NOTE | 2017-10-23 07:51 | NUR ---
Start of shift- Patient is a 27 y/o male admitted for Opiate and ETOH dependence. Pt is on a 5 day Subutex and 5 day Ativan taper and tolerating well. No adverse reaction noted. Last COWS 13 CIWA 10. Pt asleep, respirations even and unlabored. NKA, full code and regular diet. EKG done last night ordered d/t tachycardia, result sinus tachycardia. Patient is asymptomatic with No s/s of distress noted. Continued to monitor signs and symptoms of withdrawal. Patient slept 4 hours last night. Bed in lowest position, side rails up X2, call light with in reach. Will continue to monitor.
[2017-10-23 08:01] VITALS: BP 119/75
[2017-10-23] MEDS ORDERED: TUBERCULIN,PURIF.PROT.DERIV. 5 TU/0.1 ML TEST ID ONE (09:00)
[2017-10-23] MEDS: GABAPENTIN 300 MG CAPSULE PO SCH ×5 (09:00→21:00)
[2017-10-23] MEDS: FOLIC ACID 1 MG TABLET PO SCH (09:26)
[2017-10-23] MEDS: LACTOBACILLUS RHAMNOSUS GG 1 EACH CAPSULE PO SCH ×2 (09:26→21:26)
[2017-10-23] MEDS: SULFAMETH/TRIMETH 800/160 MG TABLET PO SCH ×2 (09:27→21:26)
[2017-10-23] MEDS: MULTIVITAMINS,THERAPEUTIC TABLET PO SCH (09:27)
[2017-10-23] MEDS: LORAZEPAM 1 MG TABLET PO SCH ×3 (09:27→21:26)
[2017-10-23] MEDS: THIAMINE HCL 100 MG TABLET PO SCH (09:27)
[2017-10-23] MEDS: BUPRENORPHINE HCL 2 MG TAB.SUBL SL SCH ×3 (09:28→21:26)
[2017-10-23] MEDS: LORAZEPAM 1 MG TABLET PO PRN ×2 (11:12→16:58)
[2017-10-23 11:13] VITALS: BP 115/72
--- NOTE | 2017-10-23 11:15 | NUR ---
PRN Ativan 2 mg po for COWS 16 and severe anxiety. Pt pacing around unit, c/o panic attack. HR elevated 149, blood pressure WNL. Pt c/o nausea, admin Zofran 4 mg SL PRN. Will continue to monitor
--- NOTE | 2017-10-23 11:18 | NUR ---
PRN ZOFRAN 4 MG SL PRN GIVEN FOR NAUSEA. WILL MONITOR FOR EFFECTIVENESS.
[2017-10-23 12:00] VITALS: BP 126/76
--- NOTE | 2017-10-23 12:15 | NUR ---
Reasses PRN Ativan 2 mg PO for panic attack and COWS 16. Pt HR now 98, pt reports feeling better. COWS decreased to 11. Pt reports no nausea after Zofran 4 mg SL given.
--- NOTE | 2017-10-23 12:18 | NUR ---
REASSESSMENT PT REPORTED MED WAS EFFECTIVE AND NAUSEA HAS CEASED. WILL CONTINUE TO MONITOR.
[2017-10-23] MEDS: BACLOFEN 10 MG TABLET PO SCH ×2 (14:37→21:26)
[2017-10-23 16:07] LABS: HEPATITIS B SURFACE AG Negative (Negative)
--- NOTE | 2017-10-23 16:30 | NUR ---
PRN ROBAXIN GIVEN FOR GENERALIZED BODY ACHES 04/05. WILL MONITOR FOR EFFECTIVENESS.
[2017-10-23 16:51] VITALS: BP 137/99
--- NOTE | 2017-10-23 16:59 | NUR ---
PRN Ativan 2 mg PO for COWS 15, CIWA 11. Pt HR 144, Pt c/o anxiety and restless.
--- NOTE | 2017-10-23 17:30 | NUR ---
REASSESSMENT PT REPORTED MEDICATION WAS EFFECTIVE FOR BODY ACHES; PAIN /10. WILL CONTINUE TO MONITOR.
--- NOTE | 2017-10-23 17:59 | NUR ---
REASSESSMENT PT STATES HE IS LESS ANXIOUS BUT RESTLESSNESS IS OBSERVED AND PT IS FIDGETY. PT HR 138. WILL CONTINUE TO MONITOR AND PROVIDE SUPPORT.
--- NOTE | 2017-10-23 18:32 | NUR ---
End of shift- Patient is a 27 y/o male admitted for Opiate and ETOH dependence. Pt is on a 5 day Subutex and 5 day Ativan taper. At 1600 last COWS 15 CIWA 11. EKG ordered last night for elevated HR, result sinus tachycardia, MD aware. Pt reports panic attack at 1100 with HR 143. Adm PRN Ativan 2 mg for COWS 15. HR improved to 109. At 1600 COWS 15 and HR again elevated to 144. Adm PRN Ativan 2mg PO. HR remains tachy and aware. Pt remains anxious and restless. Pt reports NKA, full code and regular diet. Bilateral ankles no swelling or redness noted. Continued to monitor signs and symptoms of withdrawal. Pt participated in group therapy today. Adequate PO fluid intake 1419 ml, voids X 1, no BM today. All safety measures in place. Bed in lowest position, side rails up X2, call light within reach. Will endorse to incoming RN.
--- NOTE | 2017-10-23 19:15 | NUR ---
Start of Shift Note: Patient is a 27 y.o male admitted today 10/22/17 for Opiate and ETOH dependence. Patient reported drinking 750ml of whiskey daily and Heroin IV 0.5-1.0 gram daily for 19 days. Patient also reports smoking Meth on an intermittent non-daily basis. Patient has PMHx of Hepatitis C. Patient continues on a 5-day Subutex and 5-day Ativan taper and tolerating well. Last COWS 15 CIWA 11. Patient received PRN Ativan 2mg x2 and Zofran during my shift. Patient is alert & oriented to name, place & situation. Patient is ambulatory with a steady gait. No shortness of breath noted. Respiration even & unlabored. Abdomen soft & non-distended. No nausea/vomiting noted. Patient presented with 6/10 generalized body aches sweating, chills, restlessness, runny nose, moderate anxiety and agitation. Patient noted with bilateral hand tremors. Pt denies visual, auditory and tactile hallucinations. Safety precautions are in place. Bed locked in lowest position. Call light within pts reach. Will continue to monitor patient.
[2017-10-23 20:00] VITALS: BP 128/91
[2017-10-23] MEDS: QUETIAPINE FUMARATE 25 MG TABLET PO SCH (21:00)
[2017-10-23] MEDS: CLONIDINE HCL 0.1 MG TABLET PO SCH (21:26)
[2017-10-24] VITALS: BP 127/84
[2017-10-24 04:00] VITALS: BP 131/76
--- NOTE | 2017-10-24 07:03 | NUR ---
End of Shift Note: Patient is a 27 y.o male admitted on 10/22/17 for Opiate and ETOH dependence. Patient had an uneventful night. Pt is on a Subutex and Ativan taper and tolerating well. No adverse reaction noted. Last COWS CIWA 11. No PRN medications received during my shift. Vitals monitored closely and noted WNL. Continued to monitor signs and symptoms of withdrawal. Patient slept most of the night for a total of 8 hours. Fluid intake: 1105 ml. Voided 2x with no bowel movement. Encourage pt to increase fluid intake. All needs attended & met. Safety measures in place. Will endorse pt to day shift nurse.
--- NOTE | 2017-10-24 07:30 | NUR ---
start of shift note: received pt from shift production associate nurse, pt is in stable condition no s/s of pain or discomfort. pt is sleeping in bed. pt is admitted to [facility] for ETOH/opiate/meth withdrawal/dependence. pt is tolerating medications well last cows and ciwa were 11. pt slept for 8 hrs, will continue to monitor pt for any changes and continue to meet pt's needs
[2017-10-24 09:00] VITALS: BP 116/64
[2017-10-24] MEDS: GABAPENTIN 300 MG CAPSULE PO SCH ×3 (09:00→20:30)
[2017-10-24] MEDS ORDERED: LORAZEPAM 1 MG TABLET PO SCH ×3 (09:00→21:00)
[2017-10-24] MEDS ORDERED: BUPRENORPHINE HCL 2 MG TAB.SUBL SL SCH (09:00)
[2017-10-24] MEDS ORDERED: HYDROXYZINE PAMOATE 25 MG CAPSULE PO PRN (09:00)
[2017-10-24] MEDS: FOLIC ACID 1 MG TABLET PO SCH (09:02)
[2017-10-24] MEDS: SULFAMETH/TRIMETH 800/160 MG TABLET PO SCH ×2 (09:02→20:30)
[2017-10-24] MEDS: LACTOBACILLUS RHAMNOSUS GG 1 EACH CAPSULE PO SCH ×2 (09:02→20:29)
[2017-10-24] MEDS: MULTIVITAMINS,THERAPEUTIC TABLET PO SCH (09:03)
[2017-10-24] MEDS: THIAMINE HCL 100 MG TABLET PO SCH (09:03)
[2017-10-24] MEDS: BACLOFEN 10 MG TABLET PO SCH (09:03)
[2017-10-24] MEDS: CLONIDINE HCL 0.1 MG TABLET PO SCH ×2 (09:03→20:30)
[2017-10-24] MEDS ORDERED: KETOROLAC TROMETHAMINE 30 MG INJ IM PRN (12:30)
[2017-10-24 13:00] VITALS: BP 113/60
[2017-10-24] MEDS: BUPRENORPHINE HCL 2 MG TAB.SUBL SL SCH ×2 (16:43→20:29)
[2017-10-24] MEDS: BACLOFEN 20 MG TABLET PO SCH ×2 (16:43→20:29)
[2017-10-24 17:00] VITALS: BP 115/67
--- NOTE | 2017-10-24 18:22 | NUR ---
end of shift note: pt is awake and appears to be anxious, offered pt vistaril and pt verbalized he will wait for a scheduled ativan. pt appears to have difficulty comprehending reality, pt also has difficulty with focus. pt tolerating taper well no PRN'S were administered and no A/r noted. Pt's last cows 5 and Ciwa 4
--- NOTE | 2017-10-24 18:22 | NUR ---
START OF SHIFT NOTE: Patient is 27 year old male admitted to [facility] on 10/22/2017 for Alcohol, Opioid, and Methamphetamine dependence. Patient continue 5 Day Ativan and 5 Day Subutex Taper. Patient tolerated well without ASE. Patient remains compliant with treatment plan, medications, and diet regime. Patient reports NKA, is on Regular Diet, Full Code, Fall and Seizures Precautions. Patient denies Seizures History. PMH: anxiety, depression, Hepatitis C. Upon endorsement patient is in his room alert and oriented x4, with stable gait. Speech is soft and clear. COWS 6, CIWA 5: patient c/o restlessness, anxiety, agitation, severe body aches, sweating, and nasal stuffiness. VSWNL. Respirations unlabored and even. Lungs Sounds are clear thoroughly. Abdomen is soft, non-tender. Bowels Sounds presents in all x4 quadrants. Skin is warm, and dry to touch. Left ankle is swelling/redness. Patient 's ordered Bactrim q12h for 7 days. Encouraged to fluids intake as tolerated. Encouraged to attending groups activities. All needs met. Safety measures in place: Call light within reach, bed locked, and in lowest position, padded bed rails up bilaterally. Patient endorsed by day shift nurse, report received.
[2017-10-24 20:00] VITALS: BP 99/60
[2017-10-24] MEDS: QUETIAPINE FUMARATE 25 MG TABLET PO SCH (20:29)
[2017-10-24] MEDS: PRAZOSIN HCL 1 MG CAPSULE PO SCH (20:30)
[2017-10-25] VITALS: BP 118/62
[2017-10-25 04:00] VITALS: BP 113/79
--- NOTE | 2017-10-25 07:18 | NUR ---
END OF SHIFT NOTE: 27 year old male admitted to [facility] for Alcohol, Opioid, and Methamphetamine dependence. Patient continue 5 Day Ativan and 5 Day Subutex Taper. He is tolerated well without ASE. Patient remains compliant with treatment plan, medications, and diet regime. Patient reports NKA, is on Regular Diet, Full Code, Fall and Seizures Precautions. Patient denies Seizures History. PMH: anxiety, depression, Hepatitis C. Last COWS 6, CIWA 4 @0400. COWS/CIWA taken when patient's awake during night. Last VS @0400: T: 97.6, BP: 113/79, HR: 63, RR:12, RA O2Sat: 97%, pain level: "0/10". Patient denies SI/HI. Respirations unlabored and even. Skin is warm and dry to touch. Left ankle is swelling/redness. No PRN Medications was administrated last night. Patient slept 9 hours, intake 850 ml, voided x1. Encouraged fluids intake as tolerated. Encouraged to attend groups activities. All needs met. Safety measures on place. Call light within reach, bed in lowest position and locked, padded rails up bilaterally. Patient endorsed to day shift nurse. Report given.
--- NOTE | 2017-10-25 07:30 | NUR ---
start of shift note: received pt from bid writer nurse, pt is in stable condition no s/s of pain or discomfort, pt is currently sleeping in bed, pt tolerated taper medications throughout the night without A/R noted. pt's last cows 6 and last ciwa 4, pt slept for 9 hrs. will continue to monitor pt for any changes and continue to meet pts needs
[2017-10-25] MEDS: SULFAMETH/TRIMETH 800/160 MG TABLET PO SCH ×2 (08:32→20:47)
[2017-10-25] MEDS: LACTOBACILLUS RHAMNOSUS GG 1 EACH CAPSULE PO SCH ×2 (08:32→20:47)
[2017-10-25] MEDS: LORAZEPAM 1 MG TABLET PO SCH ×2 (08:32→20:47)
[2017-10-25] MEDS: CLONIDINE HCL 0.1 MG TABLET PO SCH ×2 (08:32→20:48)
[2017-10-25] MEDS: THIAMINE HCL 100 MG TABLET PO SCH (08:32)
[2017-10-25] MEDS: FOLIC ACID 1 MG TABLET PO SCH (08:33)
[2017-10-25] MEDS: BACLOFEN 20 MG TABLET PO SCH ×3 (08:33→20:49)
[2017-10-25] MEDS: GABAPENTIN 300 MG CAPSULE PO SCH ×3 (08:33→20:50)
[2017-10-25] MEDS: BUPRENORPHINE HCL 2 MG TAB.SUBL SL SCH ×3 (08:33→20:49)
[2017-10-25] MEDS: MULTIVITAMINS,THERAPEUTIC TABLET PO SCH (08:33)
[2017-10-25 10:26] VITALS: BP 117/76
[2017-10-25 15:29] VITALS: BP 110/62
[2017-10-25 17:21] VITALS: BP 106/67
--- NOTE | 2017-10-25 18:48 | NUR ---
end of shift note: pt is in stable condition no s/s of pain or discomfort, pt slept majority of the shift, pt is medically detoxing from etoh,meth and opiates. pt's last ciwa 3 and last cows 3, pt appears to have a flat affect. encouraged pt to be more motived to join groups and activities, also encouraged grooming.will endorse pt to police shift commander nurse
--- NOTE | 2017-10-25 18:48 | NUR ---
START OF SHIFT NOTE: Patient is 27 year old male admitted to [facility] on 10/22/2017 for Alcohol, Opioid, and Methamphetamine dependence. Patient continue 5 Day Ativan and 5 Day Subutex Taper which tolerated well without ASE. He is remains compliant with treatment plan, medications, and diet regime. Patient reports NKA, is on Regular Diet, Full Code, Fall and Seizures Precautions. Patient denies Seizures History. PMH: Anxiety, Depression, Hepatitis C. Patient is in his room alert and oriented x4, with stable gait. Speech is soft and clear. COWS 9, CIWA 7: patient c/o anxiety, agitation, nervousness, restlessness, sweating, nasal stuffiness, and tears. VSWNL. Respirations unlabored and even. Lungs Sounds are clear thoroughly. Abdomen is soft, non-tender. Bowels Sounds presents in all x4 quadrants. Skin is warm, and dry to touch. Left ankle is swelling/redness. Patient 's ordered Bactrim q12h for 7 days. Encouraged to fluids intake as tolerated. Encouraged to attending groups activities. All needs met. Safety measures in place: Call light within reach, bed locked, and in lowest position, padded bed rails up bilaterally. Patient endorsed by day shift nurse, report received.
[2017-10-25 20:00] VITALS: BP 115/76
[2017-10-25] MEDS: PRAZOSIN HCL 1 MG CAPSULE PO SCH (20:48)
[2017-10-25] MEDS: QUETIAPINE FUMARATE 25 MG TABLET PO SCH (20:50)
--- NOTE | 2017-10-25 21:20 | NUR ---
PRN ZOFRAN (ONDANSETRON) 4 MG/2ML IM ADMINISTRATION PRN ZOFRAN (ONDANSETRON) 4 MG/2ML IM FOR NAUSEA AND VOMITING X4 ADMINISTRATED ON LEFT DELTOID MUSCLE. PATIENT TOLERATED WELL. ALL NEEDS MET. SAFETY MEASURES IN PLACE: CALL LIGHT WITHIN REACH, BED IN LOWEST POSITION AND LOCKED, PADDED RAILS UP X2. WILL TO MONITOR CLOSELY.
--- NOTE | 2017-10-25 21:50 | NUR ---
RE-ASSESSMENT Patient is sleeping. Respirations even and unlabored. RR:14. PRN Zofran (Ondansetron) 4 mg/2ml IM for nausea and vomiting administrated @2120 4 mg IM was effective. All needs met. Safety measures on place. Call light within reach, bed in lowest position and locked, padded rails up bilaterally rails up bilaterally. Will continue to monitor closely.
[2017-10-26] VITALS: BP 102/58
[2017-10-26 04:00] VITALS: BP 116/78
--- NOTE | 2017-10-26 06:38 | NUR ---
END OF SHIFT NOTE: 27 year old male presented in [facility] for Alcohol, Opioid, and Methamphetamine dependence. Patient continue 5 Day Ativan and 5 Day Subutex Taper. He is tolerated well without ASE. Patient remains compliant with treatment plan, medications, and diet regime. Patient reports NKA, is on Regular Diet, Full Code, Fall and Seizures Precautions. Patient denies Seizures History. PMH: Anxiety, Depression, Hepatitis C. Last COWS 5, CIWA 4 @0400. Patient presented with mild anxiety, agitation, nervousness, restlessness, barely sweating, nasal stuffy/moist eyes, and tremors that can be felt. COWS/CIWA taken when patient's awake during night. Last VS @0400: T: 97.6, BP: 116/78, HR: 78, RR:16, RA O2Sat: 100%, pain level: "0/10". Patient denies SI/HI. Respirations unlabored and even. Skin is warm and dry to touch. Left ankle is swelling/redness. PRN Zofran (Ondansetron) 4 mg/2ml IM for nausea and vomiting administrated @2120 was effective. Patient slept 7 hours, intake 2,050 ml, voided x1. Encouraged fluids intake as tolerated. Encouraged to attend groups activities. Safety measures in place: Call Light in reach, bed low, and locked, padded side rails up bilaterally. Needs attended. Patient endorsed to day shift nurse, report given.
--- NOTE | 2017-10-26 07:11 | NUR ---
Start of Shift Notes: Received report from night nurse. Patient is a 27 year old male admitted for ETOH/opiate dependence who was placed on a 5-day Subutex and 5-day Ativan taper as ordered. No adverse reactions noted. Has past medical hx of Hep C. FULL CODE. Regular diet. NKA. Patient is alert and oriented x 4. Respirations even and unlabored. No SOB noted. Skin warm and dry to touch. Abdomen soft and non-distended with (+) BS in all 4 quadrants. No complains of N/V/D or constipation noted. Voids independently. Ambulatory ad antwan with steady gait. Encouraged oral fluid intake and encouraged group participation to learn new skills to prevent relapse. Will continue to monitor closely.
[2017-10-26 08:00] VITALS: BP 126/67
[2017-10-26] MEDS ORDERED: LORAZEPAM 1 MG TABLET PO SCH (09:00)
[2017-10-26] MEDS ORDERED: BUPRENORPHINE HCL 2 MG TAB.SUBL SL SCH (09:00)
[2017-10-26] MEDS: BACLOFEN 20 MG TABLET PO SCH ×3 (09:14→21:09)
[2017-10-26] MEDS: FOLIC ACID 1 MG TABLET PO SCH (09:14)
[2017-10-26] MEDS: GABAPENTIN 300 MG CAPSULE PO SCH ×3 (09:14→21:00)
[2017-10-26] MEDS: SULFAMETH/TRIMETH 800/160 MG TABLET PO SCH ×2 (09:14→21:09)
[2017-10-26] MEDS: THIAMINE HCL 100 MG TABLET PO SCH (09:14)
[2017-10-26] MEDS: CLONIDINE HCL 0.1 MG TABLET PO SCH ×2 (09:14→21:09)
[2017-10-26] MEDS: LACTOBACILLUS RHAMNOSUS GG 1 EACH CAPSULE PO SCH ×2 (09:14→21:09)
[2017-10-26] MEDS: MULTIVITAMINS,THERAPEUTIC TABLET PO SCH (09:14)
[2017-10-26 12:00] VITALS: BP 122/81
[2017-10-26 16:00] VITALS: BP 119/66
--- NOTE | 2017-10-26 19:01 | NUR ---
End of Shift Notes: Patient continues to be on 5-day Ativan and 5-day Subutex taper as ordered. No adverse reactions noted. VS monitored closely. No significant abnormalities noted. Withdrawal symptoms were closely monitored. Initial COWS 8/CIWA 7, patient presented with restlessness, agitation, anxiety, tremors, chills, hot flashes and pupil dilation. Last COWS 3/CIWA3. Per patient, Subutex and Ativan has been effective in reducing patient's withdrawal symptoms. Compliant with care and treatment. Participated in group and activities. All needs met and attended. Will continue to monitor.
--- NOTE | 2017-10-26 19:05 | NUR ---
Start of Shift Patient Received. Patient is in his room, awake, alert and verbally responsive. Breathing even and non labored. Patient is able to make needs known. Patient is set for discharge tomorrow 10/27/17 to [facility]. Patient is able to verbalize Im nervous about going but It will be ok. Allowed patient to verbalize feelings and offered support. Per endorsement, No PRN medications administered. Last noted COWS 3 and CIWA 3. Patient has been noted to be compliant with group meetings and social activities. All needs attended to promptly. Will continue plan of care as ordered.
[2017-10-26] MEDS ORDERED: BACL20TA PO (19:35)
[2017-10-26] MEDS ORDERED: CLON0.1T14 PO (19:35)
[2017-10-26] MEDS ORDERED: IBUP-1955 PO (19:35)
[2017-10-26] MEDS ORDERED: PRAZ1CAP2 PO (19:35)
[2017-10-26] MEDS ORDERED: QUET25TA PO (19:35)
[2017-10-26] MEDS ORDERED: GABA-534 PO ×2 (19:35)
[2017-10-26] MEDS ORDERED: HYDR-3895 PO (19:35)
[2017-10-26] MEDS ORDERED: DICY20TA28 PO (19:35)
[2017-10-26] MEDS: QUETIAPINE FUMARATE 25 MG TABLET PO SCH (21:00)
[2017-10-26 21:01] VITALS: BP 121/76
[2017-10-26] MEDS: PRAZOSIN HCL 1 MG CAPSULE PO SCH (21:09)
[2017-10-27 00:09] VITALS: BP 106/68
[2017-10-27 04:06] VITALS: BP 99/57
--- NOTE | 2017-10-27 07:09 | NUR ---
End of Shift Patient is in bed sleeping but easily aroused to verbal stimuli. Breathing even and non labored. Patient is completed a modified Ativan and modified Subutex taper. Patient is set for discharge today 10/27/17 to [facility]. No PRN medications administered. Patients last noted COWS 5 and CIWA 4. All needs attended to promptly. Will endorse to continue plan of care as ordered.
--- NOTE | 2017-10-27 07:10 | NUR ---
Start of Shift Notes: Received report from night nurse. Patient is a 27 year old male admitted for ETOH/opiate dependence who was placed on a 5-day Subutex and 5-day Ativan taper as ordered. No adverse reactions noted. Has past medical hx of Hep C. FULL CODE. Regular diet. NKA. Patient is alert and oriented x 4. Respirations even and unlabored. No SOB noted. Skin warm and dry to touch. Abdomen soft and non-distended with (+) BS in all 4 quadrants. No complains of N/V/D or constipation noted. Voids independently. Ambulatory ad antwan with steady gait. Patient will be discharging today. Educated patient on the discharge process and patient verbalized good understanding of all teachings. Will continue to monitor closely.
[2017-10-27 08:00] VITALS: BP 127/68
[2017-10-27] MEDS: MULTIVITAMINS,THERAPEUTIC TABLET PO SCH (08:06)
[2017-10-27] MEDS: FOLIC ACID 1 MG TABLET PO SCH (08:06)
[2017-10-27 08:07] VITALS: BP 127/68
[2017-10-27] MEDS: THIAMINE HCL 100 MG TABLET PO SCH (08:07)
[2017-10-27] MEDS: SULFAMETH/TRIMETH 800/160 MG TABLET PO SCH (08:07)
[2017-10-27] MEDS: BACLOFEN 20 MG TABLET PO SCH (08:07)
[2017-10-27] MEDS: CLONIDINE HCL 0.1 MG TABLET PO SCH (08:07)
[2017-10-27] MEDS: LACTOBACILLUS RHAMNOSUS GG 1 EACH CAPSULE PO SCH (08:07)
[2017-10-27] MEDS: GABAPENTIN 300 MG CAPSULE PO SCH (08:07)
--- NOTE | 2017-10-27 09:37 | NUR ---
Discharged: Discharge education provided regarding patient's discharge instructions. Patient verbalized good understanding of all teachings. All clothing and belongings were returned to the patient. SERGING MACHINE OPER[employer] cabinet checked. Cassette checked. COWS 3/CIWA2. VS stable. All needs met and attended. Picked up by [facility] to be transported to [facility] to continue with sobriety. Escorted off the unit by SERGING MACHINE OPERATOR [employer] in stable and safe condition.
== END 2017-10-27 09:37 | disposition other institution (70) | DRG 895 ==
LOC: SRC 12:10
PROVIDERS: ADMIT Internal Medicine; ATTEND Internal Medicine
PROC: HZ2ZZZZ Detoxification Services for Substance Abuse Treatment (ICD-10-PCS; principal; 2017-10-22)
PROC: HZ41ZZZ Group Counseling for Substance Abuse Treatment, Behavioral (ICD-10-PCS; 2017-10-23)
DX: F10.232 Alcohol dependence with withdrawal with perceptual disturbance (principal); L03.116 Cellulitis of left lower limb; K70.10 Alcoholic hepatitis without ascites; F11.23 Opioid dependence with withdrawal; Y90.0 Blood alcohol level of less than 20 mg/100 ml; Z59.0 Homelessness; Z91.89 Other specified personal risk factors, not elsewhere classified; Z81.1 Family history of alcohol abuse and dependence; Z59.1 Inadequate housing; F17.210 Nicotine dependence, cigarettes, uncomplicated; B19.20 Unspecified viral hepatitis C without hepatic coma; F51.4 Sleep terrors [night terrors]
CPT/HCPCS: 36415; 70030-TC; 80307; 80324; 80361; 83735; 85025; 86592; 86705; 86803; 87340; 87806; 93005; G0480; J2405; J3411; Q0162

== ENCOUNTER 2018-03-18 16:22 | Emergency (ER) | payer OTHER ==
[~2018-03-18] VITALS: Ht 175.3 cm; Wt 63.5 kg
[~2018-03-18 16:22] MED LIST changes: +BACL20TA PO; -DIPH50CA37 PO; +GABA-534 PO; -METH-406 PO; +PRAZ1CAP2 PO; +QUET25TA PO
[2018-03-18] MEDS ORDERED: SULF1TAB48 PO (16:31)
--- NOTE | 2018-03-18 16:48 | NUR ---
at bedside to examine patient.
[2018-03-18] MEDS ORDERED: VANCOMYCIN IV 1,000 MG in IV DEXTROSE 5% 250 ML IV ONE (17:00)
[2018-03-18] MEDS ORDERED: VANCOMYCIN 1000 MG VIAL ONE (17:00)
--- NOTE | 2018-03-18 18:23 | NUR ---
DCD instructions and prescription provided to patient, who verbalized assesment. Patient left room with no c/o pain. ambulatory.
== END 2018-03-18 18:32 | disposition home or self-care (01) ==
LOC: ER 16:24
DX: L03.114 Cellulitis of left upper limb (principal); Z79.1 Long term (current) use of non-steroidal anti-inflammatories (NSAID); Z79.899 Other long term (current) drug therapy
CPT/HCPCS: 96365; 99284; A4663; J3370; J7060